=== PATIENT | male | born 1975 | race Caucasian/White ===

== ENCOUNTER 2016-12-25 10:38 | Emergency (ER) | payer SELFPAY ==
[2016-12-25 10:49] VITALS: BP 147/101
[2016-12-25] MEDS ORDERED: Dental Adhesive 1 Tube DENT ONE (11:02)
--- NOTE | 2016-12-25 11:11 | EDM.PDOC ---
ED HPI GENERAL MEDICAL PROBLEM - General Chief Complaint: ENT Problem Stated Complaint: TOOTH PAIN/WANTS REFERRAL Time Seen by Provider: 12/25/16 11:06 Source of Information: Reports: Patient, Old Records, RN Notes Reviewed History Limitations: Reports: No Limitations - History of Present Illness INITIAL COMMENTS - FREE TEXT/NARRATIVE: 41-year-old gentleman presents emergency department day complaint of dental pain he was in the emergency department about a month ago with the same problem was treated with antibiotics and Percocet he has not followed with the dentist he has not had any fevers he feels the Percocet did not work well for him he feels he gets better relief from ibuprofen but he also wants referral for community to Left Upper Tooth/Teeth Pain Score (Numeric/FACES): 10 - Related Data Allergies Allergy/AdvReac Type Severity Reaction Status Date / Time No Known Allergies Allergy Verified 12/25/16 10:49 Home Meds: Home Meds NK [No Known Home Meds] 10/10/16 [History] Past Medical History HEENT History: Reports: Impaired Vision - Infectious Disease History Infectious Disease History: Reports: Chicken pox, Influenza - Past Surgical History GI Surgical History: Reports: Appendectomy Social & Family History - Tobacco Use Smoking Status *Q: Heavy Tobacco Smoker Years of Tobacco use: 20 Packs/Tins Daily: 0.7 - Caffeine Use Caffeine Use: Reports: Soda - Recreational Drug Use Recreational Drug Use: No ED ROS ENT - Review of Systems Review Of Systems: See Below Constitutional: Denies: Fever, Chills HEENT: Reports: Dental Pain Respiratory: Reports: No Symptoms Cardiovascular: Reports: No Symptoms ED EXAM, ENT - Physical Exam Exam: See Below Exam Limited By: No Limitations General Appearance: Alert, WD/WN, No Apparent Distress Mouth/Throat: Normal Inspection, Normal Gums, Normal Lips, Normal Oropharynx, Dental Pain, Dental Tenderness, Dental Trauma Head: Atraumatic, Normocephalic Respiratory/Chest: Lungs Clear, Normal Breath Sounds Cardiovascular: Regular Rate, Rhythm, No Murmur Course - Vital Signs Last Recorded V/S: Last Vital Signs Temp 97.5 F 12/25/16 10:49 Pulse 76 12/25/16 10:49 Resp 16 12/25/16 10:49 BP 147/101 H 12/25/16 10:49 Pulse Ox 97 12/25/16 10:49 - Orders/Labs/Meds Meds: Medications Discontinued Medications Generic Name Dose Route Start Last Admin Trade Name Gurpreet PRN Reason Stop Dose Admin Denture Adhesive 1 applic 12/25/16 11:02 Dentemp Custom DENT 12/25/16 11:03 ONETIME ONE Departure - Departure Time of Disposition: 11:11 Disposition: Home, Self-Care 01 Condition: good Clinical Impression: Pain, dental Broken tooth injury Qualifiers: Encounter type: initial encounter Fracture type: open Qualified Code(s): S02.5XXB - Fracture of tooth (traumatic), initial encounter for open fracture - Discharge Information Forms: ED Department Discharge Additional Instructions: Continue to use ibuprofen for baseline pain control, try the gabapentin for additional pain relief, please report to the dental clinic on Wednesday 8:15 am - Assessment/Plan Plan: Assessment Acuity = acute Site and laterality = dental pain tooth #16 Etiology = secondary to a molar fracture Manifestations = pain Location of injury = home Lab values = none Plan Continue using ibuprofen and gabapentin for pain relief dent temp was provided as well as referral to the community dental clinic for Wednesday Patient was in agreement with the plan all questions were answered, they were instructed to return to the emergency department or call for worsening symptoms. This note was dictated using [employer] voice recognition software please call with any questions.
== END 2016-12-25 11:30 | disposition home or self-care (01) ==
LOC: JP.ED 10:38
DX: K08.89 Other specified disorders of teeth and supporting structures (principal); S02.5XXB Fracture of tooth (traumatic), initial encounter for open fracture; F17.210 Nicotine dependence, cigarettes, uncomplicated; Z90.49 Acquired absence of other specified parts of digestive tract
CPT/HCPCS: 99283; A9270

== ENCOUNTER 2017-03-05 05:02 | Emergency (ER) | payer MEDICAID ==
[2017-03-05 05:15] VITALS: BP 159/73
[2017-03-05] MEDS ORDERED: Acetaminophen/HYDROcodone 325-10 MG Tab PO ONE (05:17)
--- NOTE | 2017-03-05 05:45 | EDM.PDOC ---
ED HPI GENERAL MEDICAL PROBLEM - General Chief Complaint: Upper Extremity Injury/Pain Stated Complaint: R HAND INJURY Time Seen by Provider: 03/05/17 05:17 Source of Information: Reports: Patient History Limitations: Reports: No Limitations - History of Present Illness INITIAL COMMENTS - FREE TEXT/NARRATIVE: History of present illness: [41-year-old male slipped in his bathtub and hit the ulnar side of his right hand on the rim the top coming in now with pain and swelling of that area. No other injuries.] Review of systems: As per history of present illness and below otherwise all systems reviewed and negative. Past medical history: As per history of present illness and as reviewed below otherwise noncontributory. Surgical history: As per history of present illness and as reviewed below otherwise noncontributory. Social history: No reported history of drug or alcohol abuse. Family history: As per history of present illness and as reviewed below otherwise noncontributory. Physical exam: HEENT: Atraumatic, normocephalic Lungs: Clear to auscultation, breath sounds equal bilaterally, chest nontender. Extremities: Examination of his hand reveals swelling on the ulnar side of his right hand Neuro: Awake, alert, oriented. Exam nonfocal. Diagnostics: [X-ray of the right hand reveals an oblique fracture at the base of the fifth right metacarpal that may be intra-articular.] Therapeutics: [He was given one Meriden one year] Impression: [Fracture of the right fifth metacarpal] Plan: [We splinted him I'll provide him with some Meriden a lot of instrument and he'll follow-up in the orthopedic clinic] Definitive disposition and diagnosis as appropriate pending reevaluation and review of above. Right Hand Pain Score (Numeric/FACES): 4 - Related Data Allergies Allergy/AdvReac Type Severity Reaction Status Date / Time No Known Allergies Allergy Verified 12/25/16 10:49 Home Meds: Home Meds NK [No Known Home Meds] 10/10/16 [History] Past Medical History - Past Health History Medical/Surgical History: Denies Medical/Surgical History HEENT History: Reports: Impaired Vision - Infectious Disease History Infectious Disease History: Reports: Chicken Pox, Influenza - Past Surgical History GI Surgical History: Reports: Appendectomy Social & Family History - Tobacco Use Smoking Status *Q: Current Every Day Smoker Years of Tobacco use: 20 Packs/Tins Daily: 1 - Caffeine Use Caffeine Use: Reports: Soda - Recreational Drug Use Recreational Drug Use: No Review of Systems - Review of Systems Review Of Systems: ROS reveals no pertinent complaints other than HPI. ED EXAM, GENERAL - Physical Exam Exam: See Below Course - Vital Signs Last Recorded V/S: Last Vital Signs Temp 36.4 C 03/05/17 05:14 Pulse 89 03/05/17 05:14 Resp 16 03/05/17 05:14 BP 159/73 H 03/05/17 05:14 Pulse Ox 99 03/05/17 05:14 - Orders/Labs/Meds Orders: Active Orders 24 hr Category Date Time Status Hand Comp Min 3V Rt [CR] Stat Exams 03/05/17 05:17 Taken Meds: Medications Discontinued Medications Generic Name Dose Route Start Last Admin Trade Name Gurpreet PRN Reason Stop Dose Admin Hydrocodone Bitart/Acetaminophen 1 tab 03/05/17 05:17 03/05/17 05:21 Meriden 325-10 Mg PO 03/05/17 05:18 1 tab ONETIME ONE Administration Departure - Departure Time of Disposition: 05:43 Disposition: Home, Self-Care 01 Condition: Good Clinical Impression: Metacarpal bone fracture Qualifiers: Encounter type: initial encounter Metacarpal bone: fifth Fracture type: closed Metacarpal location: base Fracture alignment: nondisplaced Laterality: right Qualified Code(s): S62.346A - Nondisplaced fracture of base of fifth metacarpal bone, right hand, initial encounter for closed fracture - Discharge Information Forms: ED Department Discharge Additional Instructions: You are provided with some pain medications for your fracture and the information you need to make an appointment to be seen in the orthopedic clinic. If you can get in today I think that would be a good idea but if you have to wait till Wednesday that would be okay too. - My Orders Last 24 Hours: My Active Orders 03/05/17 05:17 Hand Comp Min 3V Rt [CR] Stat - Assessment/Plan Last 24 Hours: My Active Orders 03/05/17 05:17 Hand Comp Min 3V Rt [CR] Stat
--- NOTE | 2017-03-05 09:14 | CR ---
Hand Comp Min 3V Rt HISTORY: Trauma COMPARISON: None FINDINGS: Oblique fracture of the very proximal shaft of the fifth metacarpal with mild displacement . No significant angulation. The adjacent hamate bone and base of the fourth metacarpal appear intac t.
== END 2017-03-05 05:55 | disposition home or self-care (01) ==
LOC: JP.ED 05:02
DX: S62.346A Nondisplaced fracture of base of fifth metacarpal bone, right hand, initial encounter for closed fracture (principal); F17.200 Nicotine dependence, unspecified, uncomplicated; Z90.49 Acquired absence of other specified parts of digestive tract; W18.2XXA Fall in (into) shower or empty bathtub, initial encounter; W22.8XXA Striking against or struck by other objects, initial encounter
CPT/HCPCS: 29125; 73130; 99284; A9270

== ENCOUNTER 2017-06-12 18:43 | Emergency (ER) | payer MEDICAID | END 2017-06-12 20:33 | disposition left against medical advice (07) | LOC: JP.ED 18:43 | DX: Z53.21 Procedure and treatment not carried out due to patient leaving prior to being seen by health care provider (principal) ==

== ENCOUNTER 2017-06-13 17:27 | Emergency (ER) | payer MEDICAID ==
[2017-06-13 17:38] VITALS: BP 141/73
[2017-06-13] MEDS ORDERED: Lidocaine 1% with EPINEPHrine 1:100,000 50 ML MDV INFILT ONE (17:40)
[2017-06-13] MEDS ORDERED: Bacitracin Oint 1 GM U/D Packet TOP ONE (17:57)
--- NOTE | 2017-06-13 18:02 | EDM.PDOC ---
ED HPI GENERAL MEDICAL PROBLEM - General Chief Complaint: Skin Complaint Stated Complaint: BOILS Time Seen by Provider: 06/13/17 17:40 Source of Information: Reports: Patient History Limitations: Reports: No Limitations - History of Present Illness INITIAL COMMENTS - FREE TEXT/NARRATIVE: 41-year-old male, otherwise healthy has developed several pustular lesions subcutaneously on scattered areas of his extremities. A recent one on his left wrist is resolving but a subcutaneous inflammatory abscess under the extensor surface of the right forearm is worsening. No fevers or chills. He also has a few spots on his lower extremities. He has not been traveling, has not had any insect bites or been exposed to other infections he knows of. Location: Reports: Upper Extremity, Left, Upper Extremity, Right, Lower Extremity, Left, Lower Extremity, Right Severity: Mild Right Arm Pain Score (Numeric/FACES): 9 - Related Data Allergies Allergy/AdvReac Type Severity Reaction Status Date / Time No Known Allergies Allergy Verified 12/25/16 10:49 Home Meds: Home Meds NK [No Known Home Meds] 10/10/16 [History] Past Medical History - Past Health History Medical/Surgical History: Denies Medical/Surgical History HEENT History: Reports: Impaired Vision Musculoskeletal History: Reports: Other (See Below) Other Musculoskeletal History: R boxers fx - Infectious Disease History Infectious Disease History: Reports: Chicken Pox, Influenza - Past Surgical History GI Surgical History: Reports: Appendectomy Social & Family History - Tobacco Use Smoking Status *Q: Unknown Ever Smoked Years of Tobacco use: 20 Packs/Tins Daily: 1 - Caffeine Use Caffeine Use: Reports: Soda - Recreational Drug Use Recreational Drug Use: No ED ROS GENERAL - Review of Systems Review Of Systems: See Below Constitutional: Denies: Fever, Chills, Malaise Respiratory: Denies: Shortness of Breath Cardiovascular: Denies: Chest Pain GI/Abdominal: Denies: Nausea, Vomiting Neurological: Denies: Headache Psychiatric: Reports: No Symptoms ED EXAM, SKIN/RASH Exam: See Below Exam Limited By: No Limitations General Appearance: Alert, No Apparent Distress Respiratory/Chest: No Respiratory Distress, Lungs Clear Cardiovascular: Regular Rate, Rhythm Extremities: Other (Exam is otherwise limited to the extremities. The patient has a 3 cm wide, firm and swollen erythematous subcutaneous infection on the extensor surface of the right forearm. He also has resolving erythematous areas on the left wrist and right leg.) Course - Vital Signs Last Recorded V/S: Last Vital Signs Temp 97.3 F 06/13/17 17:37 Pulse 94 06/13/17 17:37 Resp 15 06/13/17 17:37 BP 141/73 H 06/13/17 17:37 Pulse Ox 93 L 06/13/17 17:37 - Orders/Labs/Meds Orders: Active Orders 24 hr Category Date Time Status CULTURE WOUND + SMEAR [RM] Stat Lab 06/13/17 18:10 Results Meds: Medications Discontinued Medications Generic Name Dose Route Start Last Admin Trade Name Gurpreet PRN Reason Stop Dose Admin Bacitracin 1 dose 06/13/17 17:57 06/13/17 18:05 Bacitracin Oint 1 Gm TOP 06/13/17 17:58 1 dose ONETIME ONE Administration Lidocaine/Epinephrine 30 ml 06/13/17 17:40 06/13/17 17:47 Xylocaine 1% With Epinephrine 1:100,000 INFILT 06/13/17 17:41 30 ml ONETIME ONE Administration - Re-Assessments/Exams Free Text/Narrative Re-Assessment/Exam: 06/13/17 17:59 The abscess on his right arm was sterilized with Betadine, infiltrated with 1% lidocaine with epinephrine and a #11 scalpel was used to incise the wound, a curved needle cheek was used to open the abscess. Purulent material was expelled and cultured. It was covered with bacitracin and a bandage dressing, and he should keep it warm and clean while healing. He was started on Bactrim DS twice a day, and can return if worsening. He should schedule a regular appointment with a primary care physician for a complete physical. Departure - Departure Time of Disposition: 18:09 Disposition: Home, Self-Care 01 Condition: Good Clinical Impression: Abscess of skin and subcutaneous tissue Qualifiers: Site of cutaneous abscess: extremity Site of cutaneous abscess of extremity: upper extremity Laterality: unspecified laterality Qualified Code(s): L02.419 - Cutaneous abscess of limb, unspecified - Discharge Information Instructions: Cellulitis, Adult, [id number] Referrals: PCP,None [Primary Care Provider] - Forms: ED Department Discharge Care Plan Goals: Take antibiotic twice a day for at least 7 days, keep wounds clean while healing and warm compresses or soaks should help. Return if worsening despite treatment. We will contact you with culture results if there is a treatment change necessary. - My Orders Last 24 Hours: My Active Orders 06/13/17 18:10 CULTURE WOUND + SMEAR [RM] Stat - Assessment/Plan Last 24 Hours: My Active Orders 06/13/17 18:10 CULTURE WOUND + SMEAR [RM] Stat
== END 2017-06-13 18:09 | disposition home or self-care (01) ==
LOC: JP.ED 17:27
DX: L02.413 Cutaneous abscess of right upper limb (principal)
CPT/HCPCS: 10061; 87070; 87077; 87186; 87205; 99284-25

== ENCOUNTER 2017-11-01 01:04 | Emergency (ER) | payer SELFPAY | END 2017-11-01 01:54 | disposition left against medical advice (07) | LOC: JP.ED 01:04 | DX: Z53.21 Procedure and treatment not carried out due to patient leaving prior to being seen by health care provider (principal) ==

== ENCOUNTER 2018-09-09 03:16 | Emergency (ER) | payer MEDICAID ==
[2018-09-09 03:33] VITALS: BP 145/94
--- NOTE | 2018-09-09 04:12 | EDM.PDOC ---
ED HPI GENERAL MEDICAL PROBLEM - General Chief Complaint: Respiratory Problem Stated Complaint: BREATHING ISSUES Time Seen by Provider: 09/09/18 03:57 Source of Information: Reports: Patient History Limitations: Reports: No Limitations - History of Present Illness INITIAL COMMENTS - FREE TEXT/NARRATIVE: pt arrived stating that he is very sob when he is lying down. He has had a cough recently and todsy he coughed until he vomited. He is not sob when he is standing. Onset: Gradual Duration: Day(s): Location: Reports: Chest, Other Associated Symptoms: Reports: Cough, Shortness of Breath - Related Data Allergies Allergy/AdvReac Type Severity Reaction Status Date / Time No Known Allergies Allergy Verified 09/09/18 03:30 Home Meds: Home Meds NK [No Known Home Meds] 10/10/16 [History] Past Medical History - Past Health History Medical/Surgical History: Denies Medical/Surgical History HEENT History: Reports: Impaired Vision Musculoskeletal History: Reports: Fracture, Other (See Below) Other Musculoskeletal History: R boxers fx - Infectious Disease History Infectious Disease History: Reports: Chicken Pox - Past Surgical History GI Surgical History: Reports: Appendectomy Social & Family History - Tobacco Use Smoking Status *Q: Current Every Day Smoker Years of Tobacco use: 25 Packs/Tins Daily: 1 - Caffeine Use Caffeine Use: Reports: Coffee - Recreational Drug Use Recreational Drug Use: No ED ROS GENERAL - Review of Systems Review Of Systems: See Below Constitutional: Reports: No Symptoms HEENT: Reports: No Symptoms Respiratory: Reports: Shortness of Breath, Cough Cardiovascular: Reports: PND Endocrine: Reports: No Symptoms GI/Abdominal: Reports: No Symptoms : Reports: No Symptoms Musculoskeletal: Reports: No Symptoms Skin: Reports: No Symptoms ED EXAM, GENERAL - Physical Exam Exam: See Below Free Text/Narrative:: pt arrived stating that he is not able to rest at nite. When he lies down he feels sob and this wakes him up. HE DOES NOT FEEL ANXIOUS OTHERWISE. hE HAS BEEN DOING SOME BRENNAN FOR A LADY AND RECENTLY HAS BEEN LAYING SOME TILE. hE DOESN,T THINK THAT IS CAUSING HIS PROBLEM. Exam Limited By: No Limitations General Appearance: Alert, No Apparent Distress, Other (PT HAS GOOD O2 LEVELS. ) Ears: Normal TMs Nose: Normal Inspection Throat/Mouth: Normal Inspection Head: Atraumatic Neck: Normal Inspection Respiratory/Chest: No Respiratory Distress Cardiovascular: Regular Rate, Rhythm GI/Abdominal: Soft, Non-Tender (Male) Exam: Deferred Rectal (Males) Exam: Deferred Back Exam: Normal Inspection Extremities: Normal Inspection Neurological: Alert, Oriented, Normal Cognition Course - Vital Signs Last Recorded V/S: Last Vital Signs Temp 35.6 C 09/09/18 03:31 Pulse 87 09/09/18 03:31 Resp 16 09/09/18 03:31 BP 145/94 H 09/09/18 03:31 Pulse Ox 96 09/09/18 03:31 - Orders/Labs/Meds Labs: Laboratory Tests 09/09/18 09/09/18 09/09/18 Range/Units 04:05 04:05 04:05 WBC 7.1 (4.5-11.0) K/uL RBC 4.86 (4.30-5.90) M/uL Hgb 15.4 H (12.0-15.0) g/dL Hct 44.9 (40.0-54.0) % MCV 92 (80-98) fL MCH 32 H (27-31) pg MCHC 34 (32-36) % Plt Count 241 (150-400) K/uL Neut % (Auto) 40 (36-66) % Lymph % (Auto) 42 (24-44) % Pend[place] % (Auto) 13 H (2-6) % Eos % (Auto) 5 H (2-4) % Baso % (Auto) 1 (0-1) % Glucose 95 (74-106) mg/dL NT-Pro-B Natriuret Pep 16 (5-125) pg/mL Urine Color Urine Appearance Urine pH (4.5-8.0) Ur Specific Vancleve (1.008-1.030) Urine Protein (NEGATIVE) mg/dL Urine Glucose (UA) (NEGATIVE) mg/dL Urine Ketones (NEGATIVE) mg/dL Urine Occult Blood (NEGATIVE) Urine Nitrite (NEGAITVE) Urine Bilirubin (NEGATIVE) Urine Urobilinogen (NORMAL) mg/dL Ur Leukocyte Esterase (NEGATIVE) Urine RBC (0-5) Urine WBC (0-5) Ur Epithelial Cells Amorphous Sediment Urine Bacteria Urine Mucus Urine Opiates Screen (NEGATIVE) Ur Oxycodone Screen (NEGATIVE) Urine Methadone Screen (NEGATIVE) Ur Propoxyphene Screen (NEGATIVE) Ur Barbiturates Screen (NEGATIVE) Ur Tricyclics Screen (NEGATIVE) Ur Phencyclidine Scrn (NEGATIVE) Ur Amphetamine Screen (NEGATIVE) U Methamphetamines Scrn (NEGATIVE) Urine MDMA Screen (NEGATIVE) U Benzodiazepines Scrn (NEGATIVE) U Cocaine Metab Screen (NEGATIVE) U Marijuana (THC) Screen (NEGATIVE) 09/09/18 09/09/18 Range/Units 04:23 04:23 WBC (4.5-11.0) K/uL RBC (4.30-5.90) M/uL Hgb (12.0-15.0) g/dL Hct (40.0-54.0) % MCV (80-98) fL MCH (27-31) pg MCHC (32-36) % Plt Count (150-400) K/uL Neut % (Auto) (36-66) % Lymph % (Auto) (24-44) % Pend[place] % (Auto) (2-6) % Eos % (Auto) (2-4) % Baso % (Auto) (0-1) % Glucose (74-106) mg/dL NT-Pro-B Natriuret Pep (5-125) pg/mL Urine Color Yellow Urine Appearance Clear Urine pH 5.0 (4.5-8.0) Ur Specific Vancleve 1.025 (1.008-1.030) Urine Protein Negative (NEGATIVE) mg/dL Urine Glucose (UA) Normal (NEGATIVE) mg/dL Urine Ketones Negative (NEGATIVE) mg/dL Urine Occult Blood Negative (NEGATIVE) Urine Nitrite Negative (NEGAITVE) Urine Bilirubin Negative (NEGATIVE) Urine Urobilinogen Normal (NORMAL) mg/dL Ur Leukocyte Esterase Negative (NEGATIVE) Urine RBC 0-5 (0-5) Urine WBC 0-5 (0-5) Ur Epithelial Cells Rare Amorphous Sediment Urine Bacteria Few Urine Mucus Not seen Urine Opiates Screen Negative (NEGATIVE) Ur Oxycodone Screen Negative (NEGATIVE) Urine Methadone Screen Negative (NEGATIVE) Ur Propoxyphene Screen Negative (NEGATIVE) Ur Barbiturates Screen Negative (NEGATIVE) Ur Tricyclics Screen Negative (NEGATIVE) Ur Phencyclidine Scrn Negative (NEGATIVE) Ur Amphetamine Screen Negative (NEGATIVE) U Methamphetamines Scrn Presumptive positive H (NEGATIVE) Urine MDMA Screen Negative (NEGATIVE) U Benzodiazepines Scrn Negative (NEGATIVE) U Cocaine Metab Screen Negative (NEGATIVE) U Marijuana (THC) Screen Negative (NEGATIVE) - Re-Assessments/Exams Free Text/Narrative Re-Assessment/Exam: 09/09/18 04:33 PT HAD A NORMAL WBC. hE DOES HAVE ALOT OF LYMPHS SO HE COULD HAVE A VIRUS. hE HAD A NORMAL LOOKING CHEST XRAY. 09/09/18 04:39 PT HAS A NORMAL BNP AND GLUCOSE. i DID HAVE HIM LYING DOWN AND HE DID NOT DROP HIS O2 BUT OF COURSE HE WAS AWAKE AT THE TIME. Departure - Departure Time of Disposition: 04:55 Disposition: Home, Self-Care 01 Condition: Fair Clinical Impression: Viral illness - Discharge Information Instructions: Viral Illness, Adult Referrals: PCP,None [Primary Care Provider] - Forms: ED Department Discharge Care Plan Goals: USE TYLENOL PM BEFORE GOING TO BED. ALBUTEROL INHALER USE 2 PUFFS BEFORE GOING TO BED AND THEN IF HE AWAKENS. iF THIS IS A PERSISTENT ISSUE hE NEEDS TO SEE HIS OWN PHYSICIAN REGARDING SLEEP APNEA.
--- NOTE | 2018-09-09 08:48 | CR ---
CHEST: 2 view CLINICAL HISTORY:SOB COMPARISON:None FINDINGS: The heart size, pulmonary vascular and hilar structures are normal. No infiltrate effusion or pneumothorax is seen. IMPRESSION: No acute cardiopulmonary process.
== END 2018-09-09 04:58 | disposition home or self-care (01) ==
LOC: JP.ED 03:16
DX: B34.9 Viral infection, unspecified (principal); F17.210 Nicotine dependence, cigarettes, uncomplicated
CPT/HCPCS: 36415; 71046; 71046-26; 80305-QW; 81001; 82947; 83880; 85025; 99285

== ENCOUNTER 2020-01-19 05:02 | Emergency (ER) | payer MEDICAID ==
[2020-01-19 05:23] VITALS: BP 140/83; PULSE 88
[2020-01-19] MEDS ORDERED: Albuterol 0.083% 2.5 MG/3 ML Neb Soln NEB ONE (05:51)
--- NOTE | 2020-01-19 05:58 | EDM.PDOC ---
ED HPI GENERAL MEDICAL PROBLEM - General Chief Complaint: Respiratory Problem Stated Complaint: SOB Time Seen by Provider: 01/19/20 05:35 Source of Information: Reports: Patient, RN History Limitations: Reports: No Limitations - History of Present Illness INITIAL COMMENTS - FREE TEXT/NARRATIVE: 44 year old male presents to the ED with c/o wheezing, cough, and sputum production. It is worse at night when lying down. It has been ongoing for 2-3 years. It is not every night but happening more often. He denies any chest pain. States that his sputum is white, yellowish to clear. He coughs it up mostly at night. He has had bronchitis in the past and has had an albuterol inhaler before. He finds that he needs to sleep in the recliner about once a week due to the wheezing. He is a 1 pack a day smoker for 28 years. He thinks about quitting but has not given it any honest attempts. His mother had COPD and both his parents were smokers. As a child, his parents smoked in the house and Maxime got frequent pneumonia and bronchitis infections as a child. Maxime says he does snore, he has never had a sleep study. His sister has MELINDA and wears a CPAP at night. Onset: Gradual Duration: Chronic Location: Reports: Chest Severity: Mild Improves with: Reports: Other (cough) Worsens with: Reports: Other (lying down) Associated Symptoms: Reports: No Other Symptoms denies pain Pain Score (Numeric/FACES): 0 - Related Data Allergies Allergy/AdvReac Type Severity Reaction Status Date / Time No Known Allergies Allergy Verified 09/09/18 03:30 Home Meds: Home Meds NK [No Known Home Meds] 10/10/16 [History] Past Medical History - Past Health History Medical/Surgical History: Denies Medical/Surgical History HEENT History: Reports: Impaired Vision Respiratory History: Reports: Bronchitis, Recurrent Musculoskeletal History: Reports: Fracture, Other (See Below) Other Musculoskeletal History: R boxers fx Other Psychiatric History: aspbergers syndrome - Infectious Disease History Infectious Disease History: Reports: Chicken Pox - Past Surgical History GI Surgical History: Reports: Appendectomy Social & Family History - Tobacco Use Smoking Status *Q: Current Every Day Smoker Years of Tobacco use: 1 Packs/Tins Daily: 28 - Caffeine Use Caffeine Use: Reports: Soda - Recreational Drug Use Recreational Drug Use: No ED ROS GENERAL - Review of Systems Review Of Systems: See Below Constitutional: Reports: No Symptoms HEENT: Reports: Throat Pain, Other (associated with snoring) Respiratory: Reports: Shortness of Breath, Wheezing, Cough, Sputum Cardiovascular: Reports: Dyspnea on Exertion (occasional ) Endocrine: Reports: No Symptoms GI/Abdominal: Reports: No Symptoms Musculoskeletal: Reports: No Symptoms Skin: Reports: No Symptoms Neurological: Reports: No Symptoms Psychiatric: Reports: No Symptoms Hematologic/Lymphatic: Reports: No Symptoms Immunologic: Reports: No Symptoms ED EXAM, GENERAL - Physical Exam Exam: See Below General Appearance: Alert, No Apparent Distress Eye Exam: Bilateral Eye: PERRL Ears: Normal External Exam, Hearing Grossly Normal, Normal TMs Nose: Normal Inspection Throat/Mouth: Normal Inspection, Normal Oropharynx Head: Atraumatic, Normocephalic Neck: Normal Inspection, Supple, Non-Tender Respiratory/Chest: No Respiratory Distress, Normal Breath Sounds, Other (able to elicit an expiratory wheeze with forced exhalation) Cardiovascular: Regular Rate, Rhythm, No Murmur Peripheral Pulses: 2+: Brachial (L), Brachial (R) GI/Abdominal: Normal Bowel Sounds, Soft, Non-Tender (Male) Exam: Deferred Rectal (Males) Exam: Deferred Extremities: Pedal Edema (very mild edema in ankles) Neurological: Alert, Oriented Psychiatric: Normal Affect Skin Exam: Warm, Dry Lymphatic: No Adenopathy Course - Vital Signs Last Recorded V/S: Last Vital Signs Temp 98.2 F 01/19/20 05:18 Pulse 88 01/19/20 05:18 Resp 18 01/19/20 05:18 BP 140/83 01/19/20 05:18 Pulse Ox 96 01/19/20 05:18 - Orders/Labs/Meds Orders: Active Orders 24 hr Category Date Time Status RT Aerosol Therapy [RC] ASDIRECTED Care 01/19/20 05:51 Ordered Albuterol [Proventil Neb Soln] Med 01/19/20 05:51 Once 2.5 mg NEB ONETIME ONE Departure - Departure Time of Disposition: 06:24 Disposition: Home, Self-Care 01 Clinical Impression: Wheezing on expiration - Discharge Information *PRESCRIPTION DRUG MONITORING PROGRAM REVIEWED*: No *COPY OF PRESCRIPTION DRUG MONITORING REPORT IN PATIENT MAYCO: No Instructions: Shortness of Breath, Adult, [id number] Referrals: PCP,None [Primary Care Provider] - Care Plan Goals: You are experiencing symptoms of chronic respiratory changes (wheezing, chronic sputum production, shortness of breath). You need to establish care with a primary care physician for further evaluation of lung function. Most importantly , stopping smoking is the best thing you can do for yourself. And increase your water intake and decrease your soda/pop intake. This will also help with your weight loss, make your sputum less sticky and easier to cough up. Call or return to the ED with any worsening of symptoms, chest pain, difficulty catching your breath, or any other concerns. Sepsis Event Note - Evaluation Sepsis Screening Result: No Definite Risk - Focused Exam Vital Signs: Vital Signs Temp Pulse Resp BP Pulse Ox 01/19/20 05:18 98.2 F 88 18 140/83 96 Date Exam was Performed: 01/19/20 Time Exam was Performed: 05:51 - My Orders Last 24 Hours: My Active Orders 01/19/20 05:51 RT Aerosol Therapy [RC] ASDIRECTED Albuterol [Proventil Neb Soln] 2.5 mg NEB ONETIME ONE - Assessment/Plan Last 24 Hours: My Active Orders 01/19/20 05:51 RT Aerosol Therapy [RC] ASDIRECTED Albuterol [Proventil Neb Soln] 2.5 mg NEB ONETIME ONE Plan: pt does not have any evidence of an acute infectious process. He had mild expiratory wheezing with forced exhalation. His lungs were clear with normal respirations. was not able to elicit a cough, rhonchi, or crackles with deep breathing. plan to discharge home with rx for albuterol inhaler
== END 2020-01-19 06:28 | disposition home or self-care (01) ==
LOC: JP.ED 05:02
DX: R06.2 Wheezing (principal); F17.210 Nicotine dependence, cigarettes, uncomplicated
CPT/HCPCS: 94640; 99284-25

== ENCOUNTER 2020-03-12 01:50 | Emergency (ER) | payer MEDICAID ==
[~2020-03-12 01:50] MED LIST: EPINEPHrine 1:10,000 1 MG/10 ML Syringe IV ONE
[2020-03-12] MEDS ORDERED: EPINEPHrine 1:10,000 1 MG/10 ML Syringe IV ONE ×4 (01:53→02:10)
[2020-03-12] MEDS ORDERED: Sodium Chloride 0.9% 1,000 ML IV ONE ×2 (01:53→01:58)
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
--- NOTE | 2020-03-12 03:15 | CRLCT ---
INDICATION: Trauma TECHNIQUE: CT cervical spine without contrast. COMPARISON: None FINDINGS: Vertebral alignment: Alignment is normal. Vertebrae: There are no cervical spine fractures. Discs and facet joints: Disc spaces and facets are within normal limits. Extraspinal findings: Air identified within the spinal canal. Fracture involving the left temporal bone extending into the left mastoid air cells. Fluid identified within the left mastoid air cells. Displaced and nondisplaced right occipital skull fractures. Extensive pneumocephalus. Left occipital skull fractures. Fluid in the mastoid and sphenoid air cells. IMPRESSION: No evidence of acute cervical spine trauma. Fracture left temporal bone extending into the left mastoid air cells. Displaced and nondisplaced right occipital skull fractures. Left occipital skull fractures. Extensive pneumocephalus. Air identified in the spinal canal. Bilateral upper lobe airspace opacities. Dictated by Isaiah Guerrero MD @ 03/12/2020 3:13:29 AM Please note that all CT scans at this facility use dose modulation, iterative reconstruction, and/or weight-based dosing when appropriate to reduce radiation dose to as low as reasonably achievable. Dictated by: Isaiah Guerrero MD @ 03/12/2020 03:13:46 (Electronically Signed)
--- NOTE | 2020-03-12 03:28 | CRLCT ---
INDICATION: Trauma TECHNIQUE: CT head without contrast. COMPARISON: None FINDINGS: CSF spaces: Within normal limits for age. Brain parenchyma: Extensive pneumocephalus. Bilateral subarachnoid hemorrhage left greater than right. Left hemispheric subdural hematoma measuring up to 4 millimeters. Probable diffuse edema. Effacement of the ventricles. Skull base and calvarium: Fluid in the ethmoids, sphenoid and mastoid air cells. The visualized orbits are grossly unremarkable. Fracture left temporal bone extending into the left mastoid air cells with fluid in the left mastoid air cells. Displaced and nondisplaced right occipital skull fractures. Left occipital skull fractures. Diffuse scalp edema. Fractures involving the posterior lateral left side of the sphenoid air cells extending into the clivus and left carotid canal region. Extensive bilateral scalp edema. Air identified in the spinal canal. IMPRESSION: Bilateral subarachnoid hemorrhage left greater than right. Left hemispheric subdural hematoma measuring up to 4 millimeters. No significant midline shift. Oval diffuse knee cerebral edema. Effacement of the ventricles. Eft temporal skull fracture extending to the left mastoid air cells with fluid in the left mastoid air cells. CT scan of the facial bones be helpful to further characterize. Displaced nondisplaced right occipital skull fractures. Nondisplaced left occipital skull fractures. Fracture involving the left posterior lateral wall of the sphenoid sinus and extending into the adjacent clivus and carotid canal. CTA of the head would be helpful to further characterize. The. Fluid identified within the ethmoid, maxillary and sphenoid air cells. Dictated by Isaiah Guerrero MD @ 03/12/2020 3:25:47 AM Please note that all CT scans at this facility use dose modulation, iterative reconstruction, and/or weight-based dosing when appropriate to reduce radiation dose to as low as reasonably achievable. Dictated by: Isaiah Guerrero MD @ 03/12/2020 03:25:56 (Electronically Signed)
[2020-03-12 03:58] VITALS: PULSE 102
[2020-03-12 03:59] VITALS: BP 127/105
[2020-03-13 09:13] LABS: HBSAG SCREEN Negative (Negative)
== END 2020-03-12 02:12 | disposition expired ==
LOC: JP.ED 01:58
DX: S09.90XA Unspecified injury of head, initial encounter (principal); S51.031A Puncture wound without foreign body of right elbow, initial encounter; S30.811A Abrasion of abdominal wall, initial encounter; V20.4XXA Motorcycle driver injured in collision with pedestrian or animal in traffic accident, initial encounter
CPT/HCPCS: 36415; 70450; 72125; 80053; 80307; 85025; 86803; 86850; 86900; 86901; 86920; 86922; 87340; 87449; 92950; 96374; 99285; 99285-25; J0171; J7030